=== PATIENT | male | born 1995 | race Caucasian/White ===

== ENCOUNTER → 2020-04-18 | Outpatient (CLI) | payer BC ==
[~2020-04-18] MED LIST: NORCO 10-325 T1 EACH PO
== END | disposition home or self-care (01) ==
LOC: COVID19 12:04
PROVIDERS: ATTEND Hospitalist
DX: Z20.828 Contact with and (suspected) exposure to other viral communicable diseases (principal)

== ENCOUNTER → 2022-07-08 | Outpatient (CLI) | payer BC | END | disposition home or self-care (01) | LOC: RAD 15:58 | PROVIDERS: ATTEND Family Medicine | DX: M19.072 Primary osteoarthritis, left ankle and foot (principal) ==

== ENCOUNTER 2022-09-27 23:05 | Emergency (ER) | payer OTHER ==
[~2022-09-27] VITALS: Ht 175.2 cm; Wt 84.4 kg
== END 2022-09-28 00:30 | disposition left against medical advice (07) ==
LOC: ED 23:05
DX: S00.93XA Contusion of unspecified part of head, initial encounter (principal); M54.2 Cervicalgia; V89.2XXA Person injured in unspecified motor-vehicle accident, traffic, initial encounter; Y93.89 Activity, other specified; Y92.410 Unspecified street and highway as the place of occurrence of the external cause; Y99.8 Other external cause status